=== PATIENT | male | born 1985 | race Caucasian/White ===

== ENCOUNTER 2018-03-29 00:14 | Emergency (ER) | payer SELFPAY | END 2018-03-30 00:45 | disposition left against medical advice (07) | LOC: ER 00:14 | DX: Z53.21 Procedure and treatment not carried out due to patient leaving prior to being seen by health care provider (principal) ==

== ENCOUNTER 2024-01-19 17:48 | Inpatient (IN) | payer OTHER ==
[~2024-01-19] VITALS: Ht 172.7 cm; Wt 138.4 kg
[2024-01-19] MEDS ORDERED: Acetaminophen 325 MG TABLET PO ONE (18:00)
[2024-01-19] MEDS ORDERED: NS 1,000 ML IV SCH ×2 (18:05→20:05)
[2024-01-19 18:35] LABS: BASOPHILS ABSOLUTE AUTO 0.04 K/mm3 (0.00-0.23); BASOPHILS PERCENT AUTO 0 % (0-2); EOSINOPHILS ABSOLUTE AUTO 0.07 K/mm3 (0.00-0.68); EOSINOPHILS PERCENT AUTO 0 % (0-6); Hematocrit 39.4 % (37.0-53.0); Hemoglobin 13.9 g/dL (13.5-17.5); IMMATURE GRAN ABSOLUTE AUTO 0.08 K/mm3 (0.00-0.10); IMMATURE GRAN PERCENT AUTO 1 % (0-1); LYMPHOCYTES ABSOLUTE AUTO 1.72 K/mm3 (0.84-5.20); LYMPHOCYTES PERCENT AUTO 11 % (21-46); MONOCYTES ABSOLUTE AUTO 0.85 K/mm3 (0.16-1.47); MONOCYTES PERCENT AUTO 5 % (4-13); Mean Corpuscular HGB 32.8 pg (26.0-34.0); Mean Corpuscular HGB Conc 35.3 g/dL (31.5-36.5); Mean Corpuscular Volume 93 fL (80-100); Mean Platelet Volume 10.2 fL (9.1-12.4); NEUTROPHILS ABSOLUTE AUTO 13.48 K/mm3 (1.96-9.15); NEUTROPHILS PERCENT AUTO 83 % (41-73); Platelet Count 236 K/mm3 (150-400); RDW Coefficient Variation 12.8 % (11.7-14.2); RDW Standard Deviation 43.8 fL (35.1-46.3); Red Blood Cell Count 4.24 M/mm3 (4.30-5.90); White Blood Cell Count 16.24 K/mm3 (4.00-11.30)
[2024-01-19 18:57] LABS: Albumin, Blood 3.7 g/dL (3.4-5.0); Albumin/Globulin Ratio 0.9 (0.8-1.8); Bilirubin, Total 0.7 mg/dL (0.1-1.0); Bun/Creatinine Ratio 16.5 (12.0-20.0); Calcium, Blood 8.9 mg/dL (8.5-10.1); Creatinine, Blood 1.21 mg/dL (0.60-1.20); Globulin, Blood 3.9 g/dL (2.2-4.0); Potassium, Blood 3.7 mmol/L (3.5-5.5); Total Protein, Blood 7.6 g/dL (6.4-8.2)
[2024-01-19 19:24] LABS: Source, Urine Clean Catch
[2024-01-19 19:42] LABS: Appearance, Urine Clear (Clear); Bilirubin, Urine Neg (Neg); Blood, Urine Neg (Neg); Color, Urine Yellow (P-Yellow); Glucose Qualitative, Urine Neg (Neg); Ketones, Urine 1+ (Neg); Leukocyte Esterase, Urine Neg (Neg); Nitrite, Urine Neg (Neg); Protein, Urine 1+ (Neg); Urobilinogen, Urine 1+ (Normal)
[2024-01-19] MEDS ORDERED: CefTRIAXone Sodium 1,000 MG in NS 100 ML IV ONE (20:00)
[2024-01-19] MEDS ORDERED: Ketorolac Tromethamine 30mg Vial IV ONE (20:05)
[2024-01-19] MEDS ORDERED: Morphine Sulfate 4 MG/1 ML Injection ONE (20:47)
[2024-01-19] MEDS ORDERED: Ondansetron HCl 2 MG / ML 2ML Vial IV PRN (22:15)
[2024-01-19] MEDS ORDERED: Acetaminophen 325 MG TABLET PO PRN (22:15)
[2024-01-19] MEDS ORDERED: OxyCODONE HCL 5 MG TAB PO PRN (22:15)
[2024-01-19] MEDS ORDERED: Morphine Sulfate 4 MG/1 ML Injection IV ONE (22:25)
[2024-01-19] MEDS ORDERED: Albuterol 2.5 MG/3 ML VIAL INH PRN (22:45)
[2024-01-19] MEDS ORDERED: Lactated Ringer's 1,000 ML IV SCH (23:00)
[2024-01-20 00:06] VITALS: BP 155/83
[2024-01-20 00:08] LABS: Influenza A, PCR NEGATIVE (NEGATIVE); Influenza B, PCR NEGATIVE (NEGATIVE); Resp Syncytial Virus, PCR NEGATIVE (NEGATIVE); SARS-Cov-2 (COVID-19) PCR, MMC NEGATIVE (NEGATIVE)
[2024-01-20] MEDS ORDERED: NS 250 ML IV PRN (00:15)
[2024-01-20] MEDS ORDERED: ALBU90OI INH (01:08)
--- NOTE | 2024-01-20 02:38 | NUR ---
SHIFT SUMMARY NOC PT A/O X 4. PLEASANT AND COOPERATIVE WITH CARE. INDPENDENT/CONTINENT. ADMIT FROM ED WITH DX OF EPIDIDYMITIS OF R TESTICLE. PT HAS SEVERE SWELLING/PAIN IN R TESTICLE (PIC IN CHART). PT HAS HX OF URETHAL STRICTURES AND GRAFT. PT PAIN BEING MANAGED PER EMAR. PT ON TELE SINUS TACH IN LOW 100'S. INFUSION OF LR @ 125 ML/HR X 1 BAG RUNNING. RESPIRATORY PANEL WAS NEGATIVE. PT FIANCE STAYED IN ROOM WITH PT. PT CURRENTLY RESTING WITH BED IN LOWEST POSITION, AND CALL LIGHT WITHIN REACH.
[2024-01-20 04:48] VITALS: BP 117/54
[2024-01-20 05:07] LABS: BASOPHILS ABSOLUTE AUTO 0.03 K/mm3 (0.00-0.23); BASOPHILS PERCENT AUTO 0 % (0-2); EOSINOPHILS ABSOLUTE AUTO 0.02 K/mm3 (0.00-0.68); EOSINOPHILS PERCENT AUTO 0 % (0-6); Hematocrit 35.9 % (37.0-53.0); Hemoglobin 12.7 g/dL (13.5-17.5); IMMATURE GRAN ABSOLUTE AUTO 0.12 K/mm3 (0.00-0.10); IMMATURE GRAN PERCENT AUTO 1 % (0-1); LYMPHOCYTES ABSOLUTE AUTO 1.73 K/mm3 (0.84-5.20); LYMPHOCYTES PERCENT AUTO 12 % (21-46); MONOCYTES ABSOLUTE AUTO 1.35 K/mm3 (0.16-1.47); MONOCYTES PERCENT AUTO 9 % (4-13); Mean Corpuscular HGB Conc 35.4 g/dL (31.5-36.5); Mean Corpuscular Volume 93 fL (80-100); NEUTROPHILS ABSOLUTE AUTO 11.63 K/mm3 (1.96-9.15); NEUTROPHILS PERCENT AUTO 78 % (41-73); Platelet Count 178 K/mm3 (150-400); RDW Standard Deviation 44.6 fL (35.1-46.3); Red Blood Cell Count 3.85 M/mm3 (4.30-5.90); White Blood Cell Count 14.88 K/mm3 (4.00-11.30)
[2024-01-20 05:38] LABS: Albumin, Blood 3.2 g/dL (3.4-5.0); Albumin/Globulin Ratio 0.9 (0.8-1.8); Bilirubin, Total 0.9 mg/dL (0.1-1.0); Calcium, Blood 8.3 mg/dL (8.5-10.1); Globulin, Blood 3.6 g/dL (2.2-4.0); Magnesium, Blood 1.7 mg/dL (1.6-2.4); Potassium, Blood 3.7 mmol/L (3.5-5.5); Total Protein, Blood 6.8 g/dL (6.4-8.2)
[2024-01-20] MEDS ORDERED: Guaifenesin/Dextromethorphan Syrup 5 ML UDC PO ONE (06:00)
[2024-01-20] MEDS ORDERED: Guaifenesin/Dextromethorphan Syrup 5 ML UDC PO PRN (06:00)
[2024-01-20 07:27] VITALS: BP 128/83
[2024-01-20] MEDS ORDERED: Enoxaparin 40 MG/0.4 ML SYR SC SCH (09:00)
[2024-01-20] MEDS ORDERED: CefTRIAXone Sodium 1,000 MG in NS 100 ML IV SCH (09:00)
[2024-01-20] MEDS ORDERED: Docusate Sodium 100 MG Cap PO SCH (09:00)
[2024-01-20] MEDS ORDERED: Lactobacil 2-S.Thermo-Bifido 1 1 Cap PO SCH (09:00)
[2024-01-20 14:46] VITALS: BP 139/72
--- NOTE | 2024-01-20 17:59 | NUR ---
SHIFT SUMMARY- PT ALERT, ORIENTED AND INDEPENDENT IN THE ROOM. HE HAD A SHOWER TODAY AFTER HIS FEVER BROKE THE SECOND TIME AND HIS LINNENS WERE AGAIN SOAKED. HE HAS BEEN MEDICATED FOR PAIN FREQUENTLY. PT IN BED, CALL LIGHT IN REACH NO S&S OF DISTRESS NOTED AT THIS TIME. R AC IV IS CURRENTLY SL.
--- NOTE | 2024-01-20 19:17 | NUR ---
SHIFT SUMMARY *UPDATED*- AT THE TIME OF BEDSIDE REPORT THE PT REPORTED THAT HIS PAIN WAS SO MUCH WORSE THIS EVENING. HIS FIANCE STATED HIS SCROTUM WAS "WAY BIGGER THAN BEFORE." QUICK ASSESSMENT SHOWS THE RIGHT TESTICAL HAS DOUBLED IN IZE FROM THIS MORNING. IT IS RED AND HOT. THIS MORNING THE RIGHT SIDE WAS DOUBLE THE SIZE OF THE LEFT AND THIS EVENING IT IS 4 TIMES THE SIZE. CALLED DR CALDERON SHE IS FAMILLIAR WITH THIS PT. SHE IS PLACING ORDERS FOR A STATULTRASOUND TONIGHT AND SHE MAY PLACE SOME ORDERS FOR DIFFERENT ANTIBIOTICS.
[2024-01-20] MEDS ORDERED: LevoFLOXacin 750 MG/D5W 150ML 150 ML IV SCH (20:00)
[2024-01-20 20:01] VITALS: BP 149/86
[2024-01-20] MEDS ORDERED: LevoFLOXacin 750 MG/D5W 150ML 150 ML IV ONE (20:54)
[2024-01-21 04:00] VITALS: BP 132/66
[2024-01-21 05:28] LABS: BASOPHILS ABSOLUTE AUTO 0.03 K/mm3 (0.00-0.23); BASOPHILS PERCENT AUTO 0 % (0-2); EOSINOPHILS ABSOLUTE AUTO 0.18 K/mm3 (0.00-0.68); EOSINOPHILS PERCENT AUTO 2 % (0-6); Hemoglobin 12.6 g/dL (13.5-17.5); IMMATURE GRAN ABSOLUTE AUTO 0.05 K/mm3 (0.00-0.10); IMMATURE GRAN PERCENT AUTO 1 % (0-1); LYMPHOCYTES ABSOLUTE AUTO 2.03 K/mm3 (0.84-5.20); LYMPHOCYTES PERCENT AUTO 18 % (21-46); MONOCYTES ABSOLUTE AUTO 0.93 K/mm3 (0.16-1.47); MONOCYTES PERCENT AUTO 8 % (4-13); Mean Corpuscular HGB 33.1 pg (26.0-34.0); Mean Corpuscular Volume 95 fL (80-100); Mean Platelet Volume 10.2 fL (9.1-12.4); NEUTROPHILS PERCENT AUTO 71 % (41-73); Platelet Count 189 K/mm3 (150-400); RDW Standard Deviation 45.4 fL (35.1-46.3); Red Blood Cell Count 3.81 M/mm3 (4.30-5.90); White Blood Cell Count 11.02 K/mm3 (4.00-11.30)
--- NOTE | 2024-01-21 05:34 | NUR ---
SHIFT SUMMARY NOC PT A/O X 4. PLEASANT AND COOPERATIVE WITH CARE. VSS. AT SHIFT CHANGE PT SCROTUM FOUND TO HAVE INCREASED IN SIZE BY AT LEAST 2 SINCE ADMIT. MD NOTIFIED AND ORDER FOR SCROTAL US ORDERED WELL LEVAQUIN ABX. PAIN BEING MANAGED PER EMAR. PT FIANCE STAYED WITH PT AGAIN. PT RECEIVED RT BREATHING TREATMENTS FOR SOB AND ROBITUSSIN FOR COUGH. ON TELE STILL SINUS TACH IN LOW 100'S. PT HAS BEEN AFEBRILE DURING SHIFT. PT CURRENTLY RESTING WITH BED IN LOWEST POSITION, AND CALL LIGHT WITHIN REACH.
[2024-01-21 06:03] LABS: Albumin, Blood 3.1 g/dL (3.4-5.0); Albumin/Globulin Ratio 0.7 (0.8-1.8); Bilirubin, Total 0.6 mg/dL (0.1-1.0); Bun/Creatinine Ratio 10.7 (12.0-20.0); Creatinine, Blood 0.93 mg/dL (0.60-1.20); Globulin, Blood 4.3 g/dL (2.2-4.0); Total Protein, Blood 7.4 g/dL (6.4-8.2)
[2024-01-21] MEDS ORDERED: LEVFLO500 PO (11:42)
[2024-01-21] MEDS ORDERED: Acetaminophen650 M1 PO (11:42)
[2024-01-21] MEDS ORDERED: OXAYDO5 M1 PO (11:43)
[2024-01-21] MEDS ORDERED: VISBIOME 112.51 EACH PO (11:43)
--- NOTE | 2024-01-21 15:38 | NUR ---
DISCHARGE NOTE- PT WAS GIVEN VERBAL AND WRITTEN DISCHARGE INSTRUCTIONS AND ACKNOWLEDGED UNDERSTANDING OF THEM. IV AND TELE DC'D PRIOR TO PT DISCHARGE AND HE SHOWERED PRIOR TO LEAVING. HARD COPY SCRIPT PROVIDED TO PT BY . PT DECLINED ESCORT AND WHEELCHAIR AND WALKED OUT UNDER HIS OWN POWER. NO S&S OF DISTRESS NOTED AT THE TIME OF DISCHARGE.
== END 2024-01-21 14:24 | disposition home or self-care (01) | DRG 872 ==
LOC: ER 17:48 → MEDS 22:11 → ENPENDDIS 01-21 11:13 → MEDS 01-21 14:24
PROVIDERS: Student in an Organized Health Care Education/Training Program; ADMIT Student in an Organized Health Care Education/Training Program
DX: A41.9 Sepsis, unspecified organism (principal); N45.3 Epididymo-orchitis; N43.3 Hydrocele, unspecified; J45.909 Unspecified asthma, uncomplicated
CPT/HCPCS: 0241U; 36415; 71045; 76870; 80053; 83605; 83735; 85025; 87040; 94640; 94664; 94760; 96365; 96367; 96375; 99285-25; A9270; J0696; J1650; J1885; J1956; J2270; J2405; J7030; J7050; J7120